=== PATIENT | male | born 1995 | race Caucasian/White ===

== ENCOUNTER → 2023-09-05 10:10 | Outpatient (CLI) | payer OTHER, SELFPAY ==
--- NOTE | ~2023-09-05 | XR_ITS ---
EXAMINATION: XR thoracic spine 2V DATE: 09/05/2023 10:29 INDICATION: Thoracic spine pain. Trauma. TECHNIQUE: 3 views of thoracic spine on 4 radiographs were obtained. COMPARISON: None. FINDINGS: There is 5 degrees dextrocurvature of thoracic spine. Vertebral body heights are normal. Th ere is mildly decreased disc height at multiple levels in mid and lower thoracic spine. There are end plate osteophytes at all levels. IMPRESSION: 1. Mild thoracic spondylosis. Reviewed, dictated and finalized at location A. SCOPY REGISTERED NURSE
== END ==
PROVIDERS: PCP Chiropractor; Visit Provider Chiropractor
DX: M43.04 Spondylolysis, thoracic region (principal)
CPT/HCPCS: 72070